=== PATIENT | female | born 1985 | race American Indian/Alaskan Native ===

== ENCOUNTER 2019-07-08 10:23 | Inpatient (IN) | payer OTHER ==
[2019-07-08] MEDS ORDERED: ONDANSETRON 4 MG/2 ML INJ IV ONE (11:19)
[2019-07-08] MEDS ORDERED: LACTATED RINGERS 1,000 ML IV SCH (12:00)
[2019-07-08] MEDS ORDERED: fentaNYL 100 MCG/2 ML INJ IV PRN (13:20)
[2019-07-08] MEDS ORDERED: MINERAL OIL 30 ML ORAL LIQD PO PRN (13:20)
[2019-07-08] MEDS ORDERED: TERBUTALINE 1 MG/1 ML INJ SUB-Q PRN (13:20)
[2019-07-08] MEDS ORDERED: AMPICILLIN/NS 2 GM/100 ML 2 GM/100 ML BAG IV ONE ×2 (13:20→13:23)
[2019-07-08] MEDS ORDERED: ePHEDrine SULFATE 50 MG/1 ML INJ IV PRN ×2 (13:20→19:13)
--- NOTE | 2019-07-08 13:27 | History and Physical Report ---
History of Present Illness Date of examination: 07/08/19 Date of admission: 07/08/2019 Chief complaint: SROM History of present illness: 33 year old presents with contractions and leaking of clear fluid from vagina. States fluid started leaking at 12:30 PM today. LMP 08/20/2018. EDC 07/05/2019. Patient received care at [facility] RE[facility]PER[facility] and records are available. significant for the following: trichomonas (treated and cured), GBS positive, insufficient care, transfer in at 33 weeks gestation. labs are as follows: O+, antibody screen negative, rubella nonimmune, hepatitis B surface antigen negative, HIV negative, RPR nonreactive, chlamydia negative, gonorrhea negative, trichomonas positive/negative, quad screen negative, 1 hour sugar test 112, GBS positive. 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 denies: abnormal PAP smear, chlamydia, gonorrhea, hepatitis B, hepatitis C, herpes, HIV, syphilis Family/Genetic History: diabetes Social history: lives with family, full code. denies: smoking, alcohol abuse, prescription drug abuse, IV drug use - Obstetrical History Expected Date of Delivery: 07/05/19 Actual Gestation: 40 Week(s) 3 Day(s) : 5 Para: 0 Hx # Term Pregnancies: 0 Number of Pregnancies: 0 Spontaneous Abortions: 0 Induced : 4 Number of Living Children: 0 Medications and Allergies Allergies Allergy/AdvReac Type Severity Reaction Status Date / Time No Known Allergies Allergy Unverified 07/08/19 11:18 Active Meds: Active Medications Ephedrine Sulfate (Ephedrine Sulfate) 10 mg IV Q2M PRN PRN Reason: Hypotension Fentanyl (Sublimaze) 100 mcg IV Q2H PRN PRN Reason: Labor Pain Lactated Ringer's (Lactated Ringers) 1,000 mls @ 125 mls/hr IV DIRECT SEGUN Oxytocin/Sodium Chloride (Pitocin/Ns 20 Unit/1000ml Drip) 20 units in 1,000 mls @ 125 mls/hr IV DIRECT SEGUN Lactated Ringer's (Lactated Ringers) 1,000 mls @ 125 mls/hr IV DIRECT SEGUN Ampicillin Sodium (Ampicillin/Ns 2 Gm/100 Ml) 2 gm in 100 mls @ 100 mls/hr IV ONCE ONE; Protocol Stop: 07/08/19 14:19 Ampicillin Sodium (Ampicillin/Ns 1 Gm/50 Ml) 1 gm in 50 mls @ 100 mls/hr IV Q4HR SEGUN; Protocol Mineral Oil (Mineral Oil) 30 ml PO QHS PRN PRN Reason: Constipation Terbutaline Sulfate (Brethine) 0.25 mg SUB-Q ONCE PRN PRN Reason: Hyperstimulation/Hypertonicity Review of Systems All systems: negative (contractions, leaking of clear fluid from vagina) - Vital Signs Vital signs: Vital Signs Temp Resp 97.6 F 20 07/08/19 11:10 07/08/19 11:10 Temp Pulse Resp BP Pulse Ox 97.6 F 100 H 20 103/61 100 07/08/19 11:10 07/08/19 11:22 07/08/19 11:10 07/08/19 11:17 07/08/19 11:22 - Physical Exam Abdomen: Positive: normal appearance, soft. Negative: distention, tenderness, guarding, rigidity Genitourinary (Female): Positive: normal external genitalia, normal perenium. Negative: perineal/vulvar lesions (no lesions seen on careful exam with bright light upon admission) Vagina: Positive: other (clear vaginal discharge) Uterus: Positive: enlarged. Negative: tender Anus/Rectum: Positive: normal perianal skin Extremities: Positive: normal - Obstetrical FHR: category 1 Uterine Contraction Monitor Mode: External Cervical Dilatation: 3 Cervical Effacement Percentage: 80 station: -2 Uterine Contraction Pattern: Regular Uterine Contraction Intensity: Moderate Results Result Diagrams: 07/08/19 18:18 07/08/19 18:18 All other labs normal. Assessment and Plan A: at 40 weeks, 3 days gestation. SROM. GBS positive. Labor. Elevated WBC. P: Admit. EFM. GBS prophylaxis. Urine culture, blood culture, GC/CT culture, CBC with diff, CMP. Will continue Ampicillin and will start Gentamicin. Consulted with Dr. Mckay re: this patient and elevated WBC. Pitocin for augmentation of labor. Discussed with pt. risks/benefits of Pitocin augmentation of labor. Pt. consented to Pitocin augmentation of labor.
[2019-07-08] MEDS ORDERED: OXYTOCIN 20 UNIT/1000ML DRIP 20 UNITS/1,000 ML BAG IV SCH (14:00)
[2019-07-08 14:24] LABS: Hematocrit 36.4 % (30.3-42.9); Hemoglobin 11.8 gm/dl (10.1-14.3); Mean Corpuscular HGB Conc 32 % (30-34); Mean Corpuscular Volume 81 fl (79-97); Platelet Count 192 K/mm3 (140-440); Red Blood Count 4.51 M/mm3 (3.65-5.03); Red Cell Distribution Width 17.3 % (13.2-15.2)
[2019-07-08] MEDS ORDERED: AMPICILLIN/NS 1 GM/50 ML 1 GM/50 ML BAG IV SCH (17:24)
[2019-07-08 18:50] LABS: Hematocrit 35.1 % (30.3-42.9); Hemoglobin 11.6 gm/dl (10.1-14.3); Mean Corpuscular HGB Conc 33 % (30-34); Mean Corpuscular Volume 80 fl (79-97); Platelet Count 206 K/mm3 (140-440)
[2019-07-08] MEDS ORDERED: GENTAMICIN 100 MG in SODIUM CHLORIDE 0.9% 100 ML IV SCH (19:00)
[2019-07-08 19:13] LABS: Alanine Aminotransferase 11 units/L (7-56); Albumin 3.1 g/dL (3.9-5); BUN/Creatinine Ratio 6; Blood Urea Nitrogen 5 mg/dL (7-17); Calcium 9.1 mg/dL (8.4-10.2); Hemolysis Index 13
[2019-07-08] MEDS ORDERED: NALOXONE 2 MG/2 ML INJ IV PRN (19:13)
--- NOTE | 2019-07-08 19:14 | Anesthesia Consultation ---
Anesthesia Consult and Med Hx Date of service: 07/08/19 - Airway Anesthetic Teeth Evaluation: Good ROM Head & Neck: Adequate Mental/Hyoid Distance: Adequate Mallampati Class: Class II Intubation Access Assessment: Good - Pulmonary Exam CTA: Yes - Cardiac Exam Cardiac Exam: RRR - Pre-Operative Health Status ASA Pre-Surgery Classification: ASA2, Emergency Proposed Anesthetic Plan: Epidural - Pulmonary Hx Asthma: No COPD: No Hx Pneumonia: No - Cardiovascular System Hx Hypertension: No - Central Nervous System Hx Seizures: No Hx Psychiatric Problems: No - Endocrine Hx Renal Disease: No Hx End Stage Renal Disease: No Hx Hypothyroidism: No Hx Hyperthyroidism: No - Hematic Hx Sickle Cell Disease: No - Other Systems Hx Alcohol Use: No
[2019-07-08 19:25] LABS: Eosinophils % (Manual) 0 % (0.0-4.3); Total Cells Counted 100
[2019-07-08 19:26] LABS: Anisocytosis 1+; Large Platelets 1+; Platelet Estimate Consistent w Auto
[2019-07-08] MEDS: GENTAMICIN/NS 100 MG/100 ML 100 MG/100 ML BAG IV SCH (19:54)
[2019-07-08] MEDS ORDERED: fentaNYL-BUPIV 2 MCG/ML-0.125% 200 MCG/100 ML BAG EPIDURAL SCH (20:00)
[2019-07-08] MEDS: OXYTOCIN DRIP 30 UNITS/500 ML BAG IV SCH (20:23)
[2019-07-08] MEDS: BUTORPHANOL 2 MG/1 ML INJ IV PRN (22:13)
[2019-07-08] MEDS: AMPICILLIN/NS 2 GM/100 ML 2 GM/100 ML BAG IV SCH (22:18)
--- NOTE | 2019-07-09 01:32 | Event Note ---
Date: 07/09/19 SVE /-1. Thin meconium stained amniotic fluid noted on rupture of forebag at 00:40. Patient has received Stadol for pain.
[2019-07-09] MEDS: BUTORPHANOL 2 MG/1 ML INJ IV PRN ×4 (01:48→14:26)
[2019-07-09] MEDS: LACTATED RINGERS 1,000 ML IV SCH ×2 (03:42→12:03)
[2019-07-09 04:14] LABS: Bilirubin,Urine NEG (Negative); Blood,Urine SM (Negative); Color,Urine Yellow (Yellow); Protein,Urine <15 mg/dL mg/dL (Negative); Urobilinogen,Urine < 2.0 mg/dL (<2.0); WBC,Urine < 1.0 /HPF (0.0-6.0)
[2019-07-09] MEDS ORDERED: SODIUM CHLORIDE 0.9% 1000 ML 1,000 ML ONE (04:21)
[2019-07-09] MEDS ORDERED: SODIUM CHLORIDE 0.9% 1000 ML 1,000 ML VG SCH (04:30)
[2019-07-09] MEDS: GENTAMICIN/NS 100 MG/100 ML 100 MG/100 ML BAG IV SCH ×2 (04:46→13:16)
[2019-07-09] MEDS: AMPICILLIN/NS 2 GM/100 ML 2 GM/100 ML BAG IV SCH ×2 (06:34→12:03)
[2019-07-09 07:37] LABS: Hematocrit 34.8 % (30.3-42.9); Hemoglobin 11.5 gm/dl (10.1-14.3); Mean Corpuscular HGB Conc 33 % (30-34); Mean Corpuscular Volume 79 fl (79-97); Platelet Count 187 K/mm3 (140-440); Red Blood Count 4.39 M/mm3 (3.65-5.03); Red Cell Distribution Width 16.9 % (13.2-15.2)
[2019-07-09] MEDS: OXYTOCIN DRIP 30 UNITS/500 ML BAG IV SCH (08:00)
--- NOTE | 2019-07-09 08:01 | History and Physical Report ---
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 denies: abnormal PAP smear, chlamydia, gonorrhea, hepatitis B, hepatitis C, herpes, HIV, syphilis Family/Genetic History: diabetes - Obstetrical History : 5 Medications and Allergies Allergies Allergy/AdvReac Type Severity Reaction Status Date / Time No Known Allergies Allergy Unverified 07/08/19 11:18 Home Medications Medication Instructions Recorded Confirmed Last Taken Type No Known Home Medications [No 07/09/19 07/09/19 Unknown History Reported Home Medications] Active Meds: Active Medications Butorphanol Tartrate (Stadol) 2 mg IV Q2H PRN PRN Reason: Labor Pain Last Admin: 07/09/19 01:48 Dose: 2 mg Documented by: Ephedrine Sulfate (Ephedrine Sulfate) 10 mg IV Q2M PRN PRN Reason: Hypotension Fentanyl (Sublimaze) 100 mcg IV Q2H PRN PRN Reason: Labor Pain Last Admin: 07/08/19 14:20 Dose: 100 mcg Documented by: Oxytocin/Sodium Chloride (Pitocin/Ns 20 Unit/1000ml Drip) 20 units in 1,000 mls @ 125 mls/hr IV DIRECT SEGUN Lactated Ringer's (Lactated Ringers) 1,000 mls @ 125 mls/hr IV DIRECT SEGUN Last Admin: 07/09/19 03:42 Dose: 125 mls/hr Documented by: Ampicillin Sodium (Ampicillin/Ns 2 Gm/100 Ml) 2 gm in 100 mls @ 100 mls/hr IV Q6HR SEGUN; Protocol Last Admin: 07/09/19 06:34 Dose: 100 mls/hr Documented by: Gentamicin Sulfate/Sodium Chloride (Gentamicin/Ns 100 Mg/100 Ml) 100 mg in 100 mls @ 100 mls/hr IV Q8HR SEGUN Last Admin: 07/09/19 04:46 Dose: 100 mls/hr Documented by: Oxytocin/Sodium Chloride (Pitocin/Ns 30 Unit/500ml) 30 units in 500 mls @ 0 mls/hr IV TITR SEGUN; Protocol Last Titration: 07/09/19 02:15 Dose: 4 ml/hr, 4 mls/hr Documented by: Fentanyl/Bupivacaine/Sodium Chlor (Fentanyl-Bupiv 2 Mcg/Ml-0.125%) 200 mcg in 100 mls @ 12 mls/hr EPIDURAL TITR SEGUN; Protocol Sodium Chloride (Nacl 0.9% 1000 Ml) 1,000 mls @ 0 mls/hr VG DIRECT SEGUN Last Admin: 07/09/19 04:45 Dose: 80 mls/hr Documented by: Mineral Oil (Mineral Oil) 30 ml PO QHS PRN PRN Reason: Constipation Naloxone HCl (Naloxone) 0.2 mg IV Q5M PRN PRN Reason: Respiratory sedation Terbutaline Sulfate (Brethine) 0.25 mg SUB-Q ONCE PRN PRN Reason: Hyperstimulation/Hypertonicity - Vital Signs Vital signs: Vital Signs Temp Resp 97.6 F 20 07/08/19 11:10 07/08/19 11:10 Temp Pulse Resp BP Pulse Ox 98.3 F 94 H 18 122/73 100 07/09/19 07:00 07/09/19 07:28 07/09/19 07:00 07/09/19 07:28 07/08/19 11:22 Results Result Diagrams: 07/09/19 07:10 07/08/19 18:18 Abnormal lab results 07/08/19 07/08/19 07/08/19 Range/Units 11:30 18:18 18:18 WBC 24.8 H 26.4 H (4.5-11.0) K/mm3 MCH 26 L 26 L (28-32) pg RDW 17.3 H 17.0 H (13.2-15.2) % Seg Neuts % (Manual) 81.0 H (40.0-70.0) % Lymphocytes % (Manual) 11.0 L (13.4-35.0) % Seg Neutrophils # Man 21.4 H (1.8-7.7) K/mm3 Monocytes # (Manual) 1.3 H (0.0-0.8) K/mm3 Basophils # (Manual) 0.3 H (0.0-0.1) K/mm3 Sodium 135 L (137-145) mmol/L BUN 5 L (7-17) mg/dL Alkaline Phosphatase 189 H (35-129) units/L Albumin 3.1 L (3.9-5) g/dL 04/26/20 Range/Units 07:10 WBC 32.3 H (4.5-11.0) K/mm3 MCH 26 L (28-32) pg RDW 16.9 H (13.2-15.2) % Seg Neuts % (Manual) (40.0-70.0) % Lymphocytes % (Manual) (13.4-35.0) % Seg Neutrophils # Man (1.8-7.7) K/mm3 Monocytes # (Manual) (0.0-0.8) K/mm3 Basophils # (Manual) (0.0-0.1) K/mm3 Sodium (137-145) mmol/L BUN (7-17) mg/dL Alkaline Phosphatase (35-129) units/L Albumin (3.9-5) g/dL All other labs normal.
--- NOTE | 2019-07-09 08:07 | Progress Note ---
Assessment and Plan A: at 40 weeks, 4 days gestation. SROM. Pitocin augmentation of labor. Elevated WBC. P: Continuous EFM. Continue IV Ampicillin and Gentamicin. Continue Pitocin augmentation of labor per MD. Subjective - Subjective Date of service: 07/09/19 Principal diagnosis: at 40 weeks, 4 days gestation; SROM Interval history: Patient is being augmented with Pitocin due to SROM yesterday afternoon. She is 40 weeks, 4 days gestation. She has received Pitocin overnight but have had to stop Pitocin briefly due to variable FHR decelerations. FHR decelerations have now resolved; FHR is category 1. Patient is receiving amnioinfusion. Patient continues to contract but contractions are spacing so will restart Pitocin and continue EFM. Patient has remained afebrile. Was noted yesterday to have elevated WBC count. Urinalysis negative. Urine culture and blood cultures pending. Patient continues to receive Ampicillin and Gentamicin. WBC was repeated this AM and was noted to have increased. SVE 5/100/-1. Called and informed Dr. Mckay re: all of the above, including increase in WBC and FHR tracing as well as cervical exam. Dr. Mckay states to continue Pitocin augmentation of labor. Continue amnioinfusion. Discussed this plan with patient and patient states she is in agreement. Patient reports: contractions, no new complaints, no vaginal bleeding Objective - Vital Signs Vital Signs: Vital Signs - 12hr 07/08/19 07/08/19 07/08/19 20:36 22:49 23:26 Temperature Pulse Rate 113 H 111 H 96 H Respiratory Rate Blood Pressure 115/72 135/69 101/52 07/09/19 07/09/19 07/09/19 01:13 01:26 02:27 Temperature 98.6 F Pulse Rate 117 H 87 Respiratory Rate Blood Pressure 117/65 115/56 07/09/19 07/09/19 07/09/19 04:26 05:26 06:26 Temperature Pulse Rate 88 97 H 96 H Respiratory Rate Blood Pressure 132/70 129/75 114/52 07/09/19 07/09/19 07/09/19 07:00 07:26 07:28 Temperature 98.3 F Pulse Rate 86 94 H Respiratory 18 Rate Blood Pressure 108/67 122/73 - Exam Cardiovascular: Regular rate, Normal S1, Normal S2 Lungs: Clear to auscultation Abdomen: Present: normal appearance, soft. Absent: distention, tenderness, guarding, rigidity Uterus: Present: normal, fundal height above umbilicus. Absent: tenderness FHR: category 1 Uterine Contraction Monitor Mode: Internal Cervical Dilatation: 5 Cervical Effacement Percentage: 100 station: -1 Uterine Contraction Intensity: Moderate Extremities: normal - Labs Labs: Abnormal Labs 07/08/19 07/08/19 07/08/19 11:30 18:18 18:18 WBC 24.8 H 26.4 H MCH 26 L 26 L RDW 17.3 H 17.0 H Seg Neuts % (Manual) 81.0 H Lymphocytes % (Manual) 11.0 L Seg Neutrophils # Man 21.4 H Monocytes # (Manual) 1.3 H Basophils # (Manual) 0.3 H Sodium 135 L BUN 5 L Alkaline Phosphatase 189 H Albumin 3.1 L 07/09/19 07:10 WBC 32.3 H MCH 26 L RDW 16.9 H Seg Neuts % (Manual) Lymphocytes % (Manual) Seg Neutrophils # Man Monocytes # (Manual) Basophils # (Manual) Sodium BUN Alkaline Phosphatase Albumin Laboratory Results - last 24 hr 07/08/19 07/08/19 07/08/19 04:00 11:30 11:30 WBC 24.8 H RBC 4.51 Hgb 11.8 Hct 36.4 MCV 81 MCH 26 L MCHC 32 RDW 17.3 H Plt Count 192 Add Manual Diff Total Counted Seg Neuts % (Manual) Band Neutrophils % Lymphocytes % (Manual) Reactive Lymphs % (Man) Monocytes % (Manual) Eosinophils % (Manual) Basophils % (Manual) Metamyelocytes % Myelocytes % Promyelocytes % Blast Cells % Nucleated RBC % Seg Neutrophils # Man Band Neutrophils # Lymphocytes # (Manual) Abs React Lymphs (Man) Monocytes # (Manual) Eosinophils # (Manual) Basophils # (Manual) Metamyelocytes # Myelocytes # Promyelocytes # Blast Cells # WBC Morphology Hypersegmented Neuts Hyposegmented Neuts Hypogranular Neuts Smudge Cells Toxic Granulation Toxic Vacuolation Dohle Bodies Pelger-Huet Anomaly Maria M Rods Platelet Estimate Clumped Platelets Plt Clumps, EDTA Large Platelets Giant Platelets Platelet Satelliting Plt Morphology Comment RBC Morphology Dimorphic RBCs Polychromasia Hypochromasia Poikilocytosis Anisocytosis Microcytosis Macrocytosis Spherocytes Pappenheimer Bodies Sickle Cells Target Cells Tear Drop Cells Ovalocytes Helmet Cells Cortez-Mackay Bodies [place] Rings Kyle Cells Bite Cells Crenated Cell Elliptocytes Acanthocytes (Spur) Rouleaux Hemoglobin C Crystals Schistocytes Malaria parasites Romel Bodies Hem Pathologist Commnt Sodium Potassium Chloride Carbon Dioxide Anion Gap BUN Creatinine Estimated GFR BUN/Creatinine Ratio Glucose Calcium Total Bilirubin AST ALT Alkaline Phosphatase Total Protein Albumin Albumin/Globulin Ratio Urine Color Yellow Urine Turbidity Clear Urine pH 6.0 Ur Specific [place] 1.006 Urine Protein <15 mg/dl Urine Glucose (UA) Neg Urine Ketones 20 Urine Blood Sm Urine Nitrite Neg Urine Bilirubin Neg Urine Urobilinogen < 2.0 Ur Leukocyte Esterase Neg Urine WBC (Auto) < 1.0 Urine RBC (Auto) 1.0 U Epithel Cells (Auto) < 1.0 Syphilis IgG Antibody Blood Type O POSITIVE Antibody Screen Negative 07/08/19 07/08/19 07/08/19 11:30 18:18 18:18 WBC 26.4 H RBC 4.40 Hgb 11.6 Hct 35.1 MCV 80 MCH 26 L MCHC 33 RDW 17.0 H Plt Count 206 Add Manual Diff Complete Total Counted 100 Seg Neuts % (Manual) 81.0 H Band Neutrophils % 0 Lymphocytes % (Manual) 11.0 L Reactive Lymphs % (Man) 0 Monocytes % (Manual) 5.0 Eosinophils % (Manual) 0 Basophils % (Manual) 1.0 Metamyelocytes % 2.0 Myelocytes % 0 Promyelocytes % 0 Blast Cells % 0 Nucleated RBC % Not Reportable Seg Neutrophils # Man 21.4 H Band Neutrophils # 0.0 Lymphocytes # (Manual) 2.9 Abs React Lymphs (Man) 0.0 Monocytes # (Manual) 1.3 H Eosinophils # (Manual) 0.0 Basophils # (Manual) 0.3 H Metamyelocytes # 0.5 Myelocytes # 0.0 Promyelocytes # 0.0 Blast Cells # 0.0 WBC Morphology Not Reportable Hypersegmented Neuts Not Reportable Hyposegmented Neuts Not Reportable Hypogranular Neuts Not Reportable Smudge Cells Not Reportable Toxic Granulation Not Reportable Toxic Vacuolation Not Reportable Dohle Bodies Not Reportable Pelger-Huet Anomaly Not Reportable Maria M Rods Not Reportable Platelet Estimate Consistent w auto Clumped Platelets Not Reportable Plt Clumps, EDTA Not Reportable Large Platelets 1+ Giant Platelets Not Reportable Platelet Satelliting Not Reportable Plt Morphology Comment Not Reportable RBC Morphology Not Reportable Dimorphic RBCs Not Reportable Polychromasia Few Hypochromasia Not Reportable Poikilocytosis Not Reportable Anisocytosis 1+ Microcytosis Not Reportable Macrocytosis Not Reportable Spherocytes Not Reportable Pappenheimer Bodies Not Reportable Sickle Cells Not Reportable Target Cells Not Reportable Tear Drop Cells Not Reportable Ovalocytes Not Reportable Helmet Cells Not Reportable Cortez-Mackay Bodies Not Reportable [place] Rings Not Reportable Kyle Cells Not Reportable Bite Cells Not Reportable Crenated Cell Not Reportable Elliptocytes Not Reportable Acanthocytes (Spur) Not Reportable Rouleaux Not Reportable Hemoglobin C Crystals Not Reportable Schistocytes Not Reportable Malaria parasites Not Reportable Romel Bodies Not Reportable Hem Pathologist Commnt No Sodium 135 L Potassium 3.7 Chloride 100.2 Carbon Dioxide 22 Anion Gap 17 BUN 5 L Creatinine 0.8 Estimated GFR > 60 BUN/Creatinine Ratio 6 Glucose 70 Calcium 9.1 Total Bilirubin 0.40 AST 18 ALT 11 Alkaline Phosphatase 189 H Total Protein 6.5 Albumin 3.1 L Albumin/Globulin Ratio 0.9 Urine Color Urine Turbidity Urine pH Ur Specific [place] Urine Protein Urine Glucose (UA) Urine Ketones Urine Blood Urine Nitrite Urine Bilirubin Urine Urobilinogen Ur Leukocyte Esterase Urine WBC (Auto) Urine RBC (Auto) U Epithel Cells (Auto) Syphilis IgG Antibody Non-reactive Blood Type Antibody Screen 07/09/19 07:10 WBC 32.3 H RBC 4.39 Hgb 11.5 Hct 34.8 MCV 79 MCH 26 L MCHC 33 RDW 16.9 H Plt Count 187 Add Manual Diff Total Counted Seg Neuts % (Manual) Band Neutrophils % Lymphocytes % (Manual) Reactive Lymphs % (Man) Monocytes % (Manual) Eosinophils % (Manual) Basophils % (Manual) Metamyelocytes % Myelocytes % Promyelocytes % Blast Cells % Nucleated RBC % Seg Neutrophils # Man Band Neutrophils # Lymphocytes # (Manual) Abs React Lymphs (Man) Monocytes # (Manual) Eosinophils # (Manual) Basophils # (Manual) Metamyelocytes # Myelocytes # Promyelocytes # Blast Cells # WBC Morphology Hypersegmented Neuts Hyposegmented Neuts Hypogranular Neuts Smudge Cells Toxic Granulation Toxic Vacuolation Dohle Bodies Pelger-Huet Anomaly Maria M Rods Platelet Estimate Clumped Platelets Plt Clumps, EDTA Large Platelets Giant Platelets Platelet Satelliting Plt Morphology Comment RBC Morphology Dimorphic RBCs Polychromasia Hypochromasia Poikilocytosis Anisocytosis Microcytosis Macrocytosis Spherocytes Pappenheimer Bodies Sickle Cells Target Cells Tear Drop Cells Ovalocytes Helmet Cells Cortez-Mackay Bodies [place] Rings Kyle Cells Bite Cells Crenated Cell Elliptocytes Acanthocytes (Spur) Rouleaux Hemoglobin C Crystals Schistocytes Malaria parasites Romel Bodies Hem Pathologist Commnt Sodium Potassium Chloride Carbon Dioxide Anion Gap BUN Creatinine Estimated GFR BUN/Creatinine Ratio Glucose Calcium Total Bilirubin AST ALT Alkaline Phosphatase Total Protein Albumin Albumin/Globulin Ratio Urine Color Urine Turbidity Urine pH Ur Specific [place] Urine Protein Urine Glucose (UA) Urine Ketones Urine Blood Urine Nitrite Urine Bilirubin Urine Urobilinogen Ur Leukocyte Esterase Urine WBC (Auto) Urine RBC (Auto) U Epithel Cells (Auto) Syphilis IgG Antibody Blood Type Antibody Screen
[2019-07-09 08:12] LABS: Band Neutrophils # (Manual) 0.3 K/mm3; Basophils % (Manual) 0 % (0.0-1.8); Total Cells Counted 100
[2019-07-09 08:13] LABS: Anisocytosis 1+; Platelet Estimate Consistent w Auto
[2019-07-09 08:14] LABS: Large Platelets 1+
--- NOTE | 2019-07-09 13:40 | Event Note ---
Date: 07/09/19 SVE 6100/0. FHR category 2. Occasional brief variable FHR deceleration with rapid return to baseline; infrequent prolonged FHR deceleration (2 minutes or less). Normal baseline rate and variability. Patient's temp. is normal. Consulted with Dr. Mckay re: cervical exam, FHR tracing, interventions taken, slow progress in labor, prolonged ROM. No new orders received. Dr. Mckay states to continue augmentation of labor.
[2019-07-09] MEDS ORDERED: LIDOCAINE (2%) 20 MG/1 ML VIAL 20 ML MDV INFILTRATI ONE (15:46)
[2019-07-09] MEDS ORDERED: MAGNESIUM HYDROXIDE (MOM) ORAL LIQD UDC PO PRN (17:08)
[2019-07-09] MEDS ORDERED: WITCH HAZEL/ GLYCERIN PAD TP PRN (17:08)
[2019-07-09] MEDS ORDERED: LANOLIN/ZINC/DIMETHICONE (LANSINOH) 7 GM TP PRN (17:08)
[2019-07-09] MEDS ORDERED: HYDROcodone/ACETAMINOPHEN 5-325 MG TAB PO PRN (17:08)
--- NOTE | 2019-07-09 17:19 | Procedure Note ---
OB Delivery Note - Delivery Date of Delivery: 07/09/19 Surgeon: ARNULFO FORD Estimated blood loss: other (250 cc) - Vaginal Delivery presentation: vertex Delivery position: OA Intrapartum events: none (prolonged ROM), meconium, mult.variable deceleratio, shoulder dystocia, other(please specify) (possible chorioamnionitis (maternal WBC elevated)) Delivery induction: none Delivery augmentation: pitocin Delivery monitor: external FHT, external uterine, internal uterine Route of delivery: Delivery placenta: spontaneous Delivery cord: 3 umbilical vessels Episiotomy: midline Delivery repair: vicryl Anesthesia: local Delivery comments: Spontaneous vaginal delivery at 15:56 of liveborn male weighing 3.351 kg over intact perineum with apgars of 6/9. Local anesthesia. Prolonged ROM. GBS positive. Thin meconium stained amniotic fluid (NICU was present for delivery). Right anterior shoulder dystocia, resolved with Mitch maneuver and delivery of posterior shoulder. Nuchal cord times 1, manually reduced. 3 vessel cord double clamped and cut and baby taken immediately to radiant warmer for resuscitation. Cord blood obtained. Spontaneous delivery of intact placenta and membranes by lopez mechanism at 16:09; placenta was meconium stained and was sent to pathology. EBL 250 cc. Pitocin to IV fluids after delivery of placenta. Fundus firm and midline. Midline episiotomy extended to sphincter but did not involve sphincter. Sphincter was noted to be intact. MLE repaired in usual sterile fashion with 2-0 vicryl. No other lacerations noted. Sponge count correct. Vaginal sweep negative. Baby moving all extremities well. Pt. was PUI and NICU team came to speak with pt. re: this.
--- NOTE | 2019-07-09 18:11 | Event Note ---
Date: 07/09/[address] John re: elevated WBC. Spoke with Dr. John on phone re: patient.
[2019-07-09] MEDS ORDERED: ACETAMINOPHEN 325 MG TAB PO PRN (21:57)
[2019-07-09] MEDS ORDERED: DOCUSATE SODIUM 100 MG CAP PO SCH (22:00)
[2019-07-10] MEDS ORDERED: HYDROcodone/ACETAMINOPHEN 5-325 MG TAB PO PRN (01:39)
[2019-07-10 05:58] LABS: Hematocrit 29.1 % (30.3-42.9); Hemoglobin 9.4 gm/dl (10.1-14.3); Mean Corpuscular HGB Conc 32 % (30-34); Mean Corpuscular Volume 80 fl (79-97); Platelet Count 171 K/mm3 (140-440); Red Blood Count 3.62 M/mm3 (3.65-5.03); Red Cell Distribution Width 16.9 % (13.2-15.2)
[2019-07-10] MEDS ORDERED: MAGNESIUM HYDROXIDE (MOM) ORAL LIQD UDC PO PRN (06:13)
[2019-07-10] MEDS ORDERED: WITCH HAZEL/ GLYCERIN PAD TP PRN (06:13)
[2019-07-10] MEDS ORDERED: LANOLIN/ZINC/DIMETHICONE (LANSINOH) 7 GM TP PRN (06:13)
--- NOTE | 2019-07-10 06:17 | Event Note ---
Date: 07/10/19 Re-entered orders as they had accidentally been cancelled.
[2019-07-10 08:52] LABS: Anisocytosis Few; Band Neutrophils # (Manual) 1.6 K/mm3; Basophils % (Manual) 0 % (0.0-1.8); Eosinophils % (Manual) 0 % (0.0-4.3); Total Cells Counted 100
[2019-07-10 08:53] LABS: Hypochromasia Few; Large Platelets Few; Platelet Estimate Consistent w Auto
[2019-07-10] MEDS: FERROUS SULFATE 325 MG TAB PO SCH (09:33)
[2019-07-10] MEDS: DOCUSATE SODIUM 100 MG CAP PO SCH ×2 (09:33→22:21)
[2019-07-10] MEDS: AMPICILLIN/NS 2 GM/100 ML 2 GM/100 ML BAG IV SCH ×3 (09:34→22:21)
[2019-07-10] MEDS ORDERED: SODIUM CHLORIDE 0.9% 1000 ML 1,000 ML IV SCH (10:00)
--- NOTE | 2019-07-10 11:05 | Progress Note ---
Assessment and Plan - Patient Problems (1) Person under investigation for COVID-19 Current Visit: Yes Status: Acute Plan to address problem: Specimen collected by RN on 07/10/19. Lab result pending. (2) Leukocytosis Current Visit: Yes Status: Acute Plan to address problem: Initially symptomatic but vital signs improving Covid-19 rule out Antibiotic therapy and Internal Medicine consult ordered by ELÍAS Stiles (3) Status post normal vaginal delivery Current Visit: Yes Status: Acute Plan to address problem: PPD 1 - with significantly elevated WBCs Continue routine orders Dermoplast ordered prn Anticipate discharge in 24-48 hrs (4) Single live Current Visit: Yes Status: Acute Subjective - Subjective Date of service: 07/10/19 Principal diagnosis: PPD #1; s/p ; Leukocytosis Interval history: see BERRY PICKER - H&P, Event Notes, OB Progress Note, OB Delivery Procedure Note and Event Notes Patient reports: appetite normal, voiding normally, pain well controlled, ambulating normally, other (denies coughing, fever, chills, malaise, palpitations, leg pain or SOB), no dizzy ambulation [place]: doing well, nursing well Objective - Vital Signs Latest vital signs: Vital Signs Temp Pulse Resp BP BP Pulse Ox 07/10/19 08:36 98.6 F 97 H 19 110/69 99 07/10/19 00:37 99.1 F 101 H 108/55 99 07/09/19 22:00 100.7 F H 07/09/19 20:10 101.3 F H 95 H 123/64 100 07/09/19 18:04 99.1 F 18 07/09/19 17:57 116 H 103/59 07/09/19 17:42 111 H 111/60 07/09/19 17:27 88 115/62 07/09/19 17:13 87 114/57 07/09/19 16:57 109 H 113/60 07/09/19 16:26 98 H 118/56 07/09/19 15:27 98 H 109/56 07/09/19 14:27 86 117/58 07/09/19 14:26 18 07/09/19 13:57 98.2 F 18 07/09/19 13:26 78 100/53 07/09/19 12:26 86 108/59 07/09/19 12:14 98.5 F 18 07/09/19 12:02 18 07/09/19 11:27 84 121/57 Intake and Output 07/09/19 07/10/19 07/10/19 23:59 07:59 15:59 Intake Total 240 400 Output Total 600 Balance -360 400 Intake: Oral 240 300 Intake, Free Water 100 Output: Urine 600 Void 600 Other: Total, Intake Amount 240 300 Total, Output Amount 600 # Voids Void 1 Estimated Blood Loss 250 - Exam Abdomen: Present: normal appearance, soft Vulva: both: laceration/episiotomy Uterus: Present: normal, firm, fundal height at umbilicus Extremities: Present: normal Comments: small lochia - Labs Labs: Abnormal lab results 07/09/19 07/10/19 Range/Units 10:22 05:35 WBC 31.6 H (4.5-11.0) K/mm3 RBC 3.62 L (3.65-5.03) M/mm3 Hgb 9.4 L (10.1-14.3) gm/dl Hct 29.1 L (30.3-42.9) % MCH 26 L (28-32) pg RDW 16.9 H (13.2-15.2) % Seg Neuts % (Manual) 80.0 H (40.0-70.0) % Lymphocytes % (Manual) 6.0 L (13.4-35.0) % Seg Neutrophils # Man 25.3 H (1.8-7.7) K/mm3 Monocytes # (Manual) 1.9 H (0.0-0.8) K/mm3 C-Reactive Protein 6.90 H (0.00-1.30) mg/dL
[2019-07-10] MEDS ORDERED: BENZOCAINE/MENTHOL 20/0.5% TOP SPRAY 56 GM TP PRN (11:06)
[2019-07-10] MEDS: GENTAMICIN/NS 100 MG/100 ML 100 MG/100 ML BAG IV SCH ×2 (13:51→23:30)
--- NOTE | 2019-07-10 16:39 | Consultation ---
History of Present Illness - Reason for Consult Consult date: 07/10/19 - History of Present Illness 33 yo F PMHx admitted to the hospital in labour. She had received pre- care prior to and was treated for trichomonas and was noted to be GBS positive as well. Her other infective screening has been negative. She gave via spontaneous vaginal delivery yesterday. Febrile to 101.3 with a white count of 31. Currently receiving ampicillin and gentamicin. Blood and urine cultures no growth to date. Imaging personally reviewed: None available. Review of Systems: Bold if positive, otherwise negative General: fevers, chills, rigors HEENT: visual disturbance, diplopia, eye pain Respiratory: cough, sputum, hemoptysis, shortness of breath Cardiovascular: chest pain, syncope Gastrointestinal: nausea, vomiting, diarrhea, abdominal pain Genitourinary: dysuria, hematuria, flank pain Musculoskeletal: neck pain, back pain, joint pain, edema Neurologic: headaches, seizures Hematologic: easy bruising or bleeding Endocrine: night sweats, acute weight loss Skin: rash, jaundice, redness Psychiatric: suicidal, homicidal ideation Past History Social history: lives with family, full code. denies: smoking, alcohol abuse, prescription drug abuse, IV drug use Medications and Allergies Allergies Allergy/AdvReac Type Severity Reaction Status Date / Time No Known Allergies Allergy Unverified 07/08/19 11:18 Home Medications Medication Instructions Recorded Confirmed Last Taken Type No Known Home Medications [No 07/09/19 07/09/19 Unknown History Reported Home Medications] Active Meds: Active Medications Acetaminophen/Hydrocodone Bitart (Dysart 5/325) 2 each PO Q6H PRN PRN Reason: Pain, Moderate (4-6) Benzocaine/Menthol (Dermoplast) 1 spray TP TID PRN PRN Reason: Pain, Moderate (4-6) Last Admin: 07/10/19 13:59 Dose: 1 spray Documented by: Docusate Sodium (Colace) 100 mg PO BID [facility] Last Admin: 07/10/19 09:33 Dose: 100 mg Documented by: Ferrous Sulfate (Feosol) 325 mg PO QDAY [facility] Last Admin: 07/10/19 09:33 Dose: 325 mg Documented by: Ampicillin Sodium (Ampicillin/Ns 2 Gm/100 Ml) 2 gm in 100 mls @ 100 mls/hr IV Q6HR [facility]; Protocol Last Admin: 07/10/19 16:13 Dose: 100 mls/hr Documented by: Gentamicin Sulfate/Sodium Chloride (Gentamicin/Ns 100 Mg/100 Ml) 100 mg in 100 mls @ 200 mls/hr IV Q8HR SEG[facility]; Protocol Last Admin: 07/10/19 13:51 Dose: 200 mls/hr Documented by: Sodium Chloride (Nacl 0.9% 1000 Ml) 1,000 mls @ 42 mls/hr IV DIRECT SEGUN Last Admin: 07/10/19 09:36 Dose: 42 mls/hr Documented by: Magnesium Hydroxide (Milk Of Magnesia) 30 ml PO HS PRN PRN Reason: Constipation Multi-Ingredient Ointment (Lansinoh) 1 applic TP PRN PRN PRN Reason: Sore Nipples Last Admin: 07/10/19 09:34 Dose: 1 applic Documented by: Sodium Chloride (Sodium Chloride Flush Syringe 10 Ml) 10 ml IV PRN PRN PRN Reason: LINE FLUSH Witch Joi/Glycerin (Tucks Pad) 1 each TP PRN PRN PRN Reason: Hemorrhoid/cleansing/soothing Last Admin: 07/10/19 09:32 Dose: 1 each Documented by: Physical Examination - Physical Exam Narrative exam: Physical exam reviewed in chart, deferred due to PPE conservation strategy. - Constitutional Vitals: Vital Signs Temp Pulse Resp BP Pulse Ox 97.3 F L 96 H 19 113/50 100 07/10/19 16:10 07/10/19 16:10 07/10/19 16:10 07/10/19 16:10 07/10/19 16:10 Temperature -Last 24 Hours Temperature 97.3 F Temperature 97.8 F Temperature 98.6 F Temperature 99.1 F Temperature 100.7 F Temperature 101.3 F Temperature 99.1 F Results - Labs CBC & Chem 7: 07/10/19 05:35 07/08/19 18:18 Labs: Abnormal lab results 07/10/19 07/10/19 Range/Units 05:35 07:09 WBC 31.6 H (4.5-11.0) K/mm3 RBC 3.62 L (3.65-5.03) M/mm3 Hgb 9.4 L (10.1-14.3) gm/dl Hct 29.1 L (30.3-42.9) % MCH 26 L (28-32) pg RDW 16.9 H (13.2-15.2) % Seg Neuts % (Manual) 80.0 H (40.0-70.0) % Lymphocytes % (Manual) 6.0 L (13.4-35.0) % Seg Neutrophils # Man 25.3 H (1.8-7.7) K/mm3 Monocytes # (Manual) 1.9 H (0.0-0.8) K/mm3 Gentamicin Peak 0.6 L (5.0-10.0) ug/mL Assessment and Plan Cultures: Blood culture 07/08/2019 pending Urine culture 07/08/2019 pending A/P: 33 yo F no PMhx admitted in labour, found to have fevers and leukocytosis. #SIRS possible sepsis: unclear source at present. Possible COVID, agree with testing. Continue precautions pending results. Continue ampicillin and gentamicin in the meantime as empiric therapy. Culture negative thus far. Ordered CXR. Recs: -Continue empiric ampicillin and gentamicin for now. -Agree with obtaining and follow up COVID testing. -Ordered CXR -Further recommendations pending COVID testing results. Thank you for the consult, we will continue to follow. Home Weber MD [facility] ([facility] M: [phone] O: [phone] F: [phone]
[2019-07-10 20:25] LABS: Hematocrit 31.2 % (30.3-42.9); Hemoglobin 10.1 gm/dl (10.1-14.3)
--- NOTE | 2019-07-10 21:17 | XRay Report ---
CHEST 1 VIEW 8:53 PM INDICATION / CLINICAL INFORMATION: Fevers and elevated white count; gave x 1 day. COMPARISON: None available. FINDINGS: SUPPORT DEVICES: None. HEART / MEDIASTINUM: The heart size and pulmonary vasculature are normal. LUNGS / PLEURA: No significant pulmonary or pleural abnormality. No pneumothorax. ADDITIONAL FINDINGS: No significant additional findings. IMPRESSION: No acute findings. There is no evidence of pneumonia. Signer Name: Musa Nguyen MD Signed: 07/10/2019 9:12 PM Workstation Name: [id number]
[2019-07-11] MEDS: AMPICILLIN/NS 2 GM/100 ML 2 GM/100 ML BAG IV SCH (05:20)
[2019-07-11] MEDS: GENTAMICIN/NS 100 MG/100 ML 100 MG/100 ML BAG IV SCH (06:46)
[2019-07-11] MEDS: DOCUSATE SODIUM 100 MG CAP PO SCH (09:22)
[2019-07-11] MEDS: FERROUS SULFATE 325 MG TAB PO SCH (09:22)
--- NOTE | 2019-07-11 12:12 | Progress Note ---
Assessment and Plan - Patient Problems (1) Status post normal vaginal delivery Current Visit: Yes Status: Acute Plan to address problem: D/C home if ok'd by infectious disease F/U at office in 6 wks for routine PP orders (2) Person under investigation for COVID-19 Current Visit: Yes Status: Acute Plan to address problem: COVID-19 test was negative Notify ID specialist, and see if ok to d/c home from their standpoint (3) Anemia Current Visit: Yes Status: Acute Qualifiers: Anemia type: other cause Other causes of anemia: acute posthemorrhagic Qualified Code(s): D62 - Acute posthemorrhagic anemia Plan to address problem: Asymptomatic Continue daily iron supplementation as directed Increase iron rich foods in diet Subjective - Subjective Date of service: 07/11/19 Principal diagnosis: PPD #2; s/p ; Leukocytosis Interval history: See admission H & P; OB delivery summary; and PP progress notes Patient reports: appetite normal, voiding normally, pain well controlled, flatus, ambulating normally, other (Pt states she feels well and is ready to go home) [place]: doing well, bottle feeding Objective - Vital Signs Latest vital signs: Vital Signs Temp Pulse Resp BP BP Pulse Ox 07/11/19 08:05 97.9 F 94 H 18 119/71 99 07/11/19 00:23 97.6 F 85 18 125/69 100 07/10/19 16:10 97.3 F L 96 H 19 113/50 100 07/10/19 13:16 97.8 F 98 H 19 126/74 100 Intake and Output 07/10/19 07/11/19 07/11/19 23:59 07:59 15:59 Intake Total 600 700 Balance 600 700 Intake: IV 200 100 AMPICILLIN/NS 2 GM/100 ML 200 2 gm In 100 ml @ 100 mls /hr IV Q6HR SEG[facility] Rx#: [id number] GENTAMICIN/NS 100 MG/100 100 ML 100 mg In 100 ml @ 200 mls/hr IV Q8HR SEGUN Rx#: [id number] Oral 300 Intake, Free Water 100 600 Other: Total, Intake Amount 300 # Voids Void 1 1 - Exam Breasts: Present: normal Cardiovascular: Present: Regular rate Lungs: Present: Normal air movement Abdomen: Present: soft Uterus: Present: firm, fundal height below umbilicus (U-2) Extremities: Present: edema (slight in bilat ankles/feet) Incision: Present: other (midline eposiotomy, healing as expected) - Labs Labs: Abnormal lab results 07/10/19 Range/Units 07:09 Gentamicin Peak 0.6 L (5.0-10.0) ug/mL
--- NOTE | 2019-07-11 12:19 | Discharge Summary ---
Providers - Providers Date of Admission: 07/08/19 13:30 Date of discharge: 07/11/19 (1400) Attending physician: JESÚS LANCASTER 07/10/19 06:10 Consult to Physician [CONS] Routine Comment: Consulting Provider: ALICJA ROSENBERG Physician Instructions: Reason For Exam: Elevated WBC Primary care physician: [facility] [employer] [facility] Hospitalization Reason for admission: active labor Delivery: Episiotomy: midline (healing as expected) Laceration: none Other procedures: none complications: other (leukocytosis; anemia) Discharge diagnosis: IUP at term delivered baby: male Hospital course: See admission H & P; OB delivery summary; and PP progress notes Condition at discharge: Stable Disposition: DC-01 TO HOME OR SELFCARE - Discharge Diagnoses (1) Status post normal vaginal delivery Status: Acute (2) Person under investigation for COVID-19 Status: Acute (3) Anemia Status: Acute Qualifiers: Anemia type: other cause Other causes of anemia: acute posthemorrhagic Qualified Code(s): D62 - Acute posthemorrhagic anemia Plan - Discharge Medications Prescriptions: Amoxicillin/K Clav Tab [Augmentin 875MG TAB] 1 each PO Q12HR 7 Days #14 tablet Ferrous Sulfate [Feosol 325 MG tab] 325 mg PO QDAY 30 Days #30 tablet - Provider Discharge Summary Activity: routine, no sex for 6 weeks, no heavy lifting 4 weeks, no strenuous exercise Diet: other (Iron rich diet) Instructions: routine Additional instructions: [] Smoking cessation referral if applicable(refer to patient education folder for contact #) [] Refer to [facility]'s [facility] Booklet Call your doctor immediately for: * Fever > 100.5 * Heavy vaginal bleeding ( >1 pad per hour) * Severe persistent headache * Shortness of breath * Reddened, hot, painful area to leg or breast * Drainage or odor from incision. * Keep epiosiotomy site clean and dry at all times and follow doctor's instructi ons regarding bathing/showering - Follow up plan Follow up: PRIMARY CARE, [Primary Care Provider] - 6 Weeks
--- NOTE | 2019-07-11 12:23 | Progress Note ---
Assessment and Plan Cultures: Blood culture 07/08/2019 pending Urine culture 07/08/2019 pending A/P: 33 yo F no PMhx admitted in labour, found to have fevers and leukocytosis. #SIRS possible sepsis: unclear source at present. Possible COVID, agree with testing. Continue precautions pending results. Continue ampicillin and gentamicin in the meantime as empiric therapy. Culture negative thus far. Ordered CXR. Recs: -Continue empiric ampicillin and gentamicin for now. -Okay for DC from infectious disease perspective with discharge with Augmentin 875/125 mg every 12 hours to complete 7 days. Stop date 07/17/2019 Thank you for the consult, we will continue to follow. Home Weber MD [facility] ([facility]) M: [phone] O: [phone] F: [phone] Subjective Date of service: 07/11/19 Principal diagnosis: PPD #2; s/p ; Leukocytosis Interval history: No new issues. Remains afebrile now. COVID testing negative. Imaging personally reviewed: CXR: No abnormality detected Objective - Exam Narrative Exam: Physical Exam: Constitutional: Alert, cooperative. No acute distress Head, Ears, Nose: Normocephalic, atraumatic. External ears, nose normal Eyes: Conjunctivae/corneas clear. No icterus. No ptosis. Neck: Supple, no meningeal signs Oral: dentition fair, no thrush Cardiovascular: S1, S2 normal. Respiratory: Good air entry, clear to auscultation bilaterally GI: Soft, non-tender; bowel sounds normal. No peritoneal signs. Musculoskeletal: No pedal edema, no cyanosis. Skin: No rash or abscess Hem/Lymphatic: No palpable cervical or supraclavicular nodes. No lymphangitis Psych: Mood ok. Affect normal Neurological: Awake, alert, oriented. No gross abnormality - Constitutional Vitals: Vital Signs Temp Pulse Resp BP Pulse Ox 97.9 F 94 H 18 119/71 99 07/11/19 08:05 07/11/19 08:05 07/11/19 08:05 07/11/19 08:05 07/11/19 08:05 Temperature -Last 24 Hours Temperature 97.9 F Temperature 97.6 F Temperature 97.3 F Temperature 97.8 F - Labs CBC & Chem 7: 07/10/19 20:11 07/08/19 18:18
[2019-07-11] MEDS ORDERED: MEASLES, MUMPS & RUBELLA 12,500 UNIT/0.5 ML VACCINE SUB-Q ONE (13:30)
[2019-07-11 13:58] VITALS: BP 130/76
[2019-07-11] MEDS ORDERED: AMOXICILLIN/K CLAV 875/125MG TAB PO SCH (14:00)
[2019-07-12] MEDS ORDERED: MEASLES, MUMPS & RUBELLA 12,500 UNIT/0.5 ML VACCINE SUB-Q ONE (12:00)
== END 2019-07-11 15:10 | disposition home or self-care (01) | DRG 806 ==
LOC: TRG 10:23 → APU 10:36 → LD 13:30 → TRG 13:30 → APU 07-09 20:19 → OB 07-09 20:20
PROVIDERS: ADMIT Obstetrics & Gynecology; ATTEND Obstetrics & Gynecology
PROC: 10E0XZZ Delivery of Products of Conception, External Approach (ICD-10-PCS; principal; 2019-07-09)
PROC: 0W8NXZZ Division of Female Perineum, External Approach (ICD-10-PCS; 2019-07-09)
PROC: 3E0134Z Introduction of Serum, Toxoid and Vaccine into Subcutaneous Tissue, Percutaneous Approach (ICD-10-PCS; 2019-07-11)
DX: O99.824 Streptococcus B carrier state complicating childbirth (principal); D62 Acute posthemorrhagic anemia; Z37.0 Single live birth; R65.10 Systemic inflammatory response syndrome (SIRS) of non-infectious origin without acute organ dysfunction; O90.81 Anemia of the puerperium; Z3A.40 40 weeks gestation of pregnancy; Z90.49 Acquired absence of other specified parts of digestive tract; O77.0 Labor and delivery complicated by meconium in amniotic fluid; O66.0 Obstructed labor due to shoulder dystocia; O69.81X0 Labor and delivery complicated by cord around neck, without compression, not applicable or unspecified; Z20.828 Contact with and (suspected) exposure to other viral communicable diseases; O75.89 Other specified complications of labor and delivery
CPT/HCPCS: 36415; 71045; 80053; 80170; 81001; 84145; 85007; 85014; 85018; 85025; 85027; 86140; 86592; 86850; 86900; 86901; 87040; 87086; 88307; 90471; 90707; G0378; A6250; J0290; J0595; J1580; J2590; J3010; J7030; J7120; U0003